=== PATIENT | male | born 1970 | race Caucasian/White ===

== ENCOUNTER → 2016-10-07 | Outpatient (CLI) | payer BC ==
--- NOTE | 2016-10-07 14:26 | Diagnostic Imaging Report ---
PROCEDURE: MRI left joint lower extremity without contrast. TECHNIQUE: Multiplanar, multisequence non contrast-enhanced MRI of the left lower extremity was accomplished. INDICATION: Left knee pain after falling and slipping on ice one week ago. FINDINGS: There is a small suprapatellar effusion. 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 There is no significant bone marrow edema seen. There is minimal increased signal in the distal aspect of the ACL and minimal increased signal in the marrow at its tibial attachment suggestive of a low-grade sprain. The PCL is normal. The medial meniscus demonstrates a tear at the posterior horn with a 4 mm gap between the posterior horn and the posterior root as a result. The body of the meniscus demonstrates extrusion with intrinsic increased signal probably degenerative. The anterior horn is intact. The lateral meniscus demonstrates no definite tear. The MCL and the lateral collateral ligament complex appear intact. The joint cartilage in the three compartments appears preserved. The extensor mechanism is intact. IMPRESSION: 1. There is a displaced tear with 4 mm gap at the posterior horn/root junction of the medial meniscus. 2. Low-grade sprain at the tibial attachment of the ACL. Dictated by: Dictated on workstation # [id number]
--- NOTE | 2016-10-07 17:29 | Diagnostic Imaging Report ---
Two views of the skull. INDICATION: Check for intraorbital metal. History of prior orbital surgery. FINDINGS: No intraorbital or intracranial metal is seen. Grossly evaluated paranasal sinuses demonstrate no definite abnormality. Multiple dental fillings noted. IMPRESSION: No intraorbital or intracranial metallic foreign body. Dictated by: Dictated on workstation # [id number]
== END ==
LOC: RAD 10:18
PROVIDERS: ATTEND Nurse Practitioner
DX: M23.262 Derangement of other lateral meniscus due to old tear or injury, left knee (principal)
CPT/HCPCS: 70250; 73721